=== PATIENT | female | born 1945 | race Caucasian/White ===

== ENCOUNTER 2023-05-10 11:24 | Inpatient (IN) | payer MEDICARE, MEDICAID ==
[2023-05-10] MEDS ORDERED: Dexamethasone 4 MG/ML 5 ML MDV ONE (11:39)
[2023-05-10] MEDS ORDERED: Albuterol/Ipratropium 3.0-0.5 MG/3 ML Neb Soln ONE (11:40)
[2023-05-10] MEDS ORDERED: Dexamethasone 4 MG/ML 5 ML MDV IVPUSH ONE (11:43)
[2023-05-10] MEDS ORDERED: Albuterol/Ipratropium 3.0-0.5 MG/3 ML Neb Soln NEB ONE (11:44)
[2023-05-10] MEDS ORDERED: Diltiazem 25 MG/5 ML SDV IVPUSH ONE (12:07)
[2023-05-10 12:08] LABS: HEMATOCRIT 50.9 % (34.2-48.2); HEMOGLOBIN 17.1 g/dL (11.4-15.5); MEAN CORPUSCULAR HEMOGLOBIN 31.5 pg (23.9-33.9); MEAN CORPUSCULAR HGB CONC 33.5 g/dL (31.9-34.8); MEAN CORPUSCULAR VOLUME 93.9 fL (76.7-100.5); MEAN PLATELET VOLUME 8.7 fL (7.1-12.4); PLATELET COUNT,PLT 240 x10(3)uL (151-488); RED BLOOD CELL COUNT 5.42 x10(6)uL (3.60-5.20); RED CELL DISTRIBUTION WIDTH 13.3 % (12.3-16.5); WHITE BLOOD CELL COUNT,WBC 20.4 x10-3/uL (3.0-10.3)
[2023-05-10 12:12] LABS: A/G RATIO 0.6; ALANINE AMINOTRANSFERASE,ALT 55 U/L (12-36); ALBUMIN 3.3 g/dL (3.2-4.6); ALKALINE PHOSPHATASE 75 IU/L (56-112); ASPARTATE AMNIOTRANSFERASE,AST 50 IU/L (5-25); BILIRUBIN TOTAL 2.3 mg/dL (0.1-1.3); BLOOD UREA NITROGEN,BUN 21 mg/dL (7-18); CALCIUM 9.4 mg/dL (8.6-10.2); CARBON DIOXIDE,CO2 27 mmol/L (21-32); CHLORIDE,CL 100 mmol/L (100-110); CREATININE 1.5 mg/dL (0.55-1.02); ESTIMATED GFR 35 mL/min (>60); GLUCOSE RANDOM 208 mg/dL (80-116); POTASSIUM,K 2.9 mmol/L (3.5-5.3); PROTEIN TOTAL,TP 8.6 g/dL (6.0-8.0); SODIUM,NA 142 mmol/L (135-145)
[2023-05-10] MEDS ORDERED: Sodium Chloride 0.9% 1,000 ML IV SCH ×3 (12:15→17:15)
[2023-05-10 12:17] LABS: INR 1.18 (1.00-1.24); PROTHROMBIN TIME 12.1 sec (9.0-11.1); PTT,PARTIAL THROMBOPLSTIN TIME 31.6 SECONDS (24.4-33.2)
[2023-05-10 12:28] LABS: BASE EXCESS VENOUS,POC -2 mmol/L (-2 - 3+); PCO2 VENOUS,POC 37 mmHg (41-51); PH VENOUS,POC 7.39 pH Units (7.32-7.43)
[2023-05-10 12:36] LABS: LACTIC ACID 5.8 mmol/L (0.4-2.0)
[2023-05-10 12:50] LABS: BAND PERCENT MAN 7 % (0-6); LYMPHOCYTES PERCENT MAN 12 % (13-37); MONOCYTES PERCENT MAN 4 % (4-12); SEG NEUTROPHILS PERCENT MAN 77 % (46-82)
[2023-05-10] MEDS ORDERED: Scopolamine 1.5 MG Transdermal Patch TOP ONE (13:49)
[2023-05-10] MEDS ORDERED: cefTRIAXone 2 GM Vial IVPUSH ONE (14:07)
[2023-05-10] MEDS ORDERED: VANCOmycin 1 GM/200 ML 1 GM in Premix Bag 1 BAG IV ONE (14:07)
[2023-05-10] MEDS: Sodium Chloride 0.9% 1,000 ML IV SCH ×2 (14:20→15:46)
[2023-05-10] MEDS ORDERED: Sodium Chloride 0.9% 1,000 ML IV ONE (14:25)
[2023-05-10] MEDS ORDERED: REMDESIVIR 200 MG in Sodium Chloride 0.9% 250 ML IV ONE (14:59)
[2023-05-10] MEDS ORDERED: Ondansetron 4 MG/2 ML SDV IV PRN (16:15)
[2023-05-10] MEDS ORDERED: Iopamidol 755 Mg/ML 100 ML Bottle IV SCH (16:30)
[2023-05-10] MEDS ORDERED: VANCOmycin 1 GM/200 ML 1 GM in Premix Bag 1 BAG IV SCH (16:30)
[2023-05-10] MEDS: Albuterol 0.083% 2.5 MG/3 ML Neb Soln NEB PRN (16:38)
[2023-05-10] MEDS: Enoxaparin 40 MG/0.4 ML Syringe SUBCUT SCH (16:41)
[2023-05-10] MEDS ORDERED: Potassium Chloride 20 MEQ in Premix Bag 1 BAG IV ONE (17:24)
[2023-05-10] MEDS ORDERED: NS + KCl 20mEq/L 1,000 ML IV SCH (17:30)
[2023-05-10] MEDS ORDERED: Haloperidol Lactate 5 MG/ML SDV IV ONE (17:39)
[2023-05-10 18:12] LABS: LACTIC ACID 3.4 mmol/L (0.4-2.0)
[2023-05-10] MEDS: Acetaminophen 325 MG Tab PO PRN (19:53)
[2023-05-10] MEDS: Albuterol/Ipratropium 3.0-0.5 MG/3 ML Neb Soln NEB SCH (20:21)
[2023-05-10] MEDS: Morphine 2 MG/ML SYRINGE IVPUSH PRN ×2 (21:04→21:16)
[2023-05-10] MEDS: Sodium Chloride 0.9% 10 ML Syringe FLUSH PRN (21:19)
[2023-05-11] MEDS: Albuterol 0.083% 2.5 MG/3 ML Neb Soln NEB PRN
[2023-05-11] MEDS: Morphine 2 MG/ML SYRINGE IVPUSH PRN (04:24)
[2023-05-11] MEDS: Sodium Chloride 0.9% 10 ML Syringe FLUSH PRN ×2 (04:26→09:15)
[2023-05-11] MEDS: Albuterol/Ipratropium 3.0-0.5 MG/3 ML Neb Soln NEB SCH ×4 (06:20→20:28)
[2023-05-11 06:44] LABS: HEMATOCRIT 42.4 % (34.2-48.2); HEMOGLOBIN 14.6 g/dL (11.4-15.5); MEAN CORPUSCULAR HGB CONC 34.5 g/dL (31.9-34.8); MEAN CORPUSCULAR VOLUME 92.8 fL (76.7-100.5); MEAN PLATELET VOLUME 8.1 fL (7.1-12.4); PLATELET COUNT,PLT 140 x10(3)uL (151-488); RED BLOOD CELL COUNT 4.57 x10(6)uL (3.60-5.20); RED CELL DISTRIBUTION WIDTH 13.6 % (12.3-16.5); WHITE BLOOD CELL COUNT,WBC 10.8 x10-3/uL (3.0-10.3)
[2023-05-11 06:51] LABS: BASE EXCESS ARTERIAL,POC -2 mmol/L (-2 - 3+); HCO3 ARTERIAL,POC 23 mmol/L (21-28); O2 SATURATION ARTERIAL,POC 94.6 % (94-98); PO2 ARTERIAL,POC 73 mmHg (83-108)
[2023-05-11 06:58] LABS: A/G RATIO 0.6; ALANINE AMINOTRANSFERASE,ALT 40 U/L (12-36); ALBUMIN 2.4 g/dL (3.2-4.6); ALKALINE PHOSPHATASE 44 IU/L (56-112); ASPARTATE AMNIOTRANSFERASE,AST 51 IU/L (5-25); BILIRUBIN TOTAL 0.7 mg/dL (0.1-1.3); BLOOD UREA NITROGEN,BUN 23 mg/dL (7-18); BUN/CREATININE RATIO 16.4 (9-20); CALCIUM 7.9 mg/dL (8.6-10.2); CARBON DIOXIDE,CO2 25 mmol/L (21-32); CHLORIDE,CL 109 mmol/L (100-110); CREATININE 1.4 mg/dL (0.55-1.02); EST CRCL DRUG DOSING (CG) 26.19 mL/min; ESTIMATED GFR 39 mL/min (>60); GLUCOSE RANDOM 170 mg/dL (80-116); PROTEIN TOTAL,TP 6.6 g/dL (6.0-8.0); SODIUM,NA 145 mmol/L (135-145)
[2023-05-11 07:12] LABS: BAND PERCENT MAN 10 % (0-6); LYMPHOCYTES PERCENT MAN 13 % (13-37); MONOCYTES PERCENT MAN 7 % (4-12); SEG NEUTROPHILS PERCENT MAN 70 % (46-82)
[2023-05-11] MEDS ORDERED: Sodium Chloride 0.9% 500 ML IV ONE (08:14)
[2023-05-11] MEDS: Dexamethasone 4 MG/ML 5 ML MDV IVPUSH SCH (09:14)
[2023-05-11] MEDS: Sodium Chloride 0.9% 1,000 ML IV SCH ×2 (10:59→21:50)
[2023-05-11] MEDS ORDERED: Gabapentin 100 MG Cap PO PRN (12:31)
[2023-05-11] MEDS: Gabapentin 100 MG Cap PO SCH ×2 (12:59→20:28)
[2023-05-11] MEDS: hydrOXYzine HCl 25 MG Tab PO SCH (12:59)
[2023-05-11] MEDS: REMDESIVIR 100 MG in Sodium Chloride 0.9% 100 ML IV SCH (14:02)
[2023-05-11] MEDS: cefTRIAXone 1 GM Vial IVPUSH SCH (14:02)
[2023-05-11] MEDS: Sennosides/Docusate Sodium 50-8.6 MG Tab PO PRN (15:24)
[2023-05-11] MEDS: VANCOmycin 1 GM/200 ML 1 GM in Premix Bag 1 BAG IV SCH (15:34)
[2023-05-11] MEDS: Enoxaparin 40 MG/0.4 ML Syringe SUBCUT SCH (17:25)
[2023-05-11] MEDS: Donepezil 5 MG Tab PO SCH (20:28)
[2023-05-11] MEDS ORDERED: QUEtiapine 25 MG Tab PO ONE (21:30)
[2023-05-11] MEDS: Acetaminophen 325 MG Tab PO PRN (23:25)
[2023-05-12 06:26] LABS: HEMATOCRIT 38.7 % (34.2-48.2); HEMOGLOBIN 13.1 g/dL (11.4-15.5); MEAN CORPUSCULAR HEMOGLOBIN 31.4 pg (23.9-33.9); MEAN CORPUSCULAR HGB CONC 33.9 g/dL (31.9-34.8); MEAN CORPUSCULAR VOLUME 92.7 fL (76.7-100.5); MEAN PLATELET VOLUME 8.6 fL (7.1-12.4); PLATELET COUNT,PLT 156 x10(3)uL (151-488); RED BLOOD CELL COUNT 4.17 x10(6)uL (3.60-5.20); RED CELL DISTRIBUTION WIDTH 13.5 % (12.3-16.5); WHITE BLOOD CELL COUNT,WBC 9.4 x10-3/uL (3.0-10.3)
[2023-05-12] MEDS: Albuterol/Ipratropium 3.0-0.5 MG/3 ML Neb Soln NEB SCH ×4 (06:30→21:45)
[2023-05-12 06:36] LABS: A/G RATIO 0.6; ALANINE AMINOTRANSFERASE,ALT 45 U/L (12-36); ALBUMIN 2.3 g/dL (3.2-4.6); ALKALINE PHOSPHATASE 41 IU/L (56-112); ASPARTATE AMNIOTRANSFERASE,AST 66 IU/L (5-25); BILIRUBIN TOTAL 0.5 mg/dL (0.1-1.3); BLOOD UREA NITROGEN,BUN 29 mg/dL (7-18); BUN/CREATININE RATIO 26.4 (9-20); CARBON DIOXIDE,CO2 24 mmol/L (21-32); CHLORIDE,CL 112 mmol/L (100-110); CREATININE 1.1 mg/dL (0.55-1.02); EST CRCL DRUG DOSING (CG) 33.34 mL/min; ESTIMATED GFR 51 mL/min (>60); GLUCOSE RANDOM 150 mg/dL (80-116); POTASSIUM,K 3.6 mmol/L (3.5-5.3); PROTEIN TOTAL,TP 6.3 g/dL (6.0-8.0); SODIUM,NA 147 mmol/L (135-145)
[2023-05-12 06:43] LABS: BAND PERCENT MAN 1 % (0-6); LYMPHOCYTES PERCENT MAN 7 % (13-37); MONOCYTES PERCENT MAN 7 % (4-12); SEG NEUTROPHILS PERCENT MAN 85 % (46-82)
[2023-05-12] MEDS: Albuterol 0.083% 2.5 MG/3 ML Neb Soln NEB PRN ×2 (08:05→23:00)
[2023-05-12] MEDS: Dexamethasone 4 MG/ML 5 ML MDV IVPUSH SCH (08:21)
[2023-05-12] MEDS: Gabapentin 100 MG Cap PO SCH ×3 (08:26→20:57)
[2023-05-12] MEDS: hydrOXYzine HCl 25 MG Tab PO SCH (08:26)
[2023-05-12] MEDS: Sodium Chloride 0.9% 10 ML Syringe FLUSH PRN ×3 (08:28→14:55)
[2023-05-12] MEDS ORDERED: QUEtiapine 25 MG Tab PO PRN (08:36)
[2023-05-12] MEDS: Sennosides/Docusate Sodium 50-8.6 MG Tab PO PRN (08:52)
[2023-05-12] MEDS ORDERED: LORazepam 2 MG/ML SDV IVPUSH PRN (09:14)
[2023-05-12] MEDS: REMDESIVIR 100 MG in Sodium Chloride 0.9% 100 ML IV SCH (14:14)
[2023-05-12] MEDS: cefTRIAXone 1 GM Vial IVPUSH SCH (14:15)
[2023-05-12] MEDS: VANCOmycin 1 GM/200 ML 1 GM in Premix Bag 1 BAG IV SCH (15:48)
[2023-05-12] MEDS: Enoxaparin 40 MG/0.4 ML Syringe SUBCUT SCH (15:54)
[2023-05-12] MEDS ORDERED: OLANZapine 10 MG Vial IM ONE (18:50)
[2023-05-12] MEDS ORDERED: LORazepam 2 MG/ML SDV IM ONE (18:52)
[2023-05-12] MEDS: Donepezil 5 MG Tab PO SCH (20:57)
[2023-05-12] MEDS: Acetaminophen 325 MG Tab PO PRN (22:55)
[2023-05-13] MEDS: Albuterol/Ipratropium 3.0-0.5 MG/3 ML Neb Soln NEB SCH ×4 (06:20→20:39)
[2023-05-13 07:19] LABS: HEMATOCRIT 39.6 % (34.2-48.2); HEMOGLOBIN 13.4 g/dL (11.4-15.5); MEAN CORPUSCULAR HEMOGLOBIN 31.5 pg (23.9-33.9); MEAN CORPUSCULAR HGB CONC 33.8 g/dL (31.9-34.8); MEAN PLATELET VOLUME 8.6 fL (7.1-12.4); PLATELET COUNT,PLT 175 x10(3)uL (151-488); RED BLOOD CELL COUNT 4.26 x10(6)uL (3.60-5.20); RED CELL DISTRIBUTION WIDTH 13.7 % (12.3-16.5); WHITE BLOOD CELL COUNT,WBC 6.8 x10-3/uL (3.0-10.3)
[2023-05-13 07:31] LABS: A/G RATIO 0.6; ALANINE AMINOTRANSFERASE,ALT 46 U/L (12-36); ALBUMIN 2.3 g/dL (3.2-4.6); ALKALINE PHOSPHATASE 43 IU/L (56-112); ASPARTATE AMNIOTRANSFERASE,AST 39 IU/L (5-25); BILIRUBIN TOTAL 0.4 mg/dL (0.1-1.3); BLOOD UREA NITROGEN,BUN 29 mg/dL (7-18); BUN/CREATININE RATIO 24.2 (9-20); CALCIUM 8.1 mg/dL (8.6-10.2); CARBON DIOXIDE,CO2 24 mmol/L (21-32); CHLORIDE,CL 113 mmol/L (100-110); CREATININE 1.2 mg/dL (0.55-1.02); EST CRCL DRUG DOSING (CG) 30.56 mL/min; ESTIMATED GFR 46 mL/min (>60); GLUCOSE RANDOM 249 mg/dL (80-116); POTASSIUM,K 3.6 mmol/L (3.5-5.3); PROTEIN TOTAL,TP 6.2 g/dL (6.0-8.0); SODIUM,NA 147 mmol/L (135-145)
[2023-05-13 07:47] LABS: LYMPHOCYTES PERCENT MAN 9 % (13-37); MONOCYTES PERCENT MAN 3 % (4-12); SEG NEUTROPHILS PERCENT MAN 88 % (46-82)
[2023-05-13] MEDS: hydrOXYzine HCl 25 MG Tab PO SCH (09:57)
[2023-05-13] MEDS: Gabapentin 100 MG Cap PO SCH ×3 (09:57→20:39)
[2023-05-13] MEDS: Dexamethasone 4 MG/ML 5 ML MDV IVPUSH SCH (09:58)
[2023-05-13] MEDS: REMDESIVIR 100 MG in Sodium Chloride 0.9% 100 ML IV SCH (14:06)
[2023-05-13] MEDS: cefTRIAXone 1 GM Vial IVPUSH SCH (15:15)
[2023-05-13] MEDS: Sodium Chloride 0.9% 10 ML Syringe FLUSH PRN (15:23)
[2023-05-13] MEDS: Enoxaparin 40 MG/0.4 ML Syringe SUBCUT SCH (16:09)
[2023-05-13] MEDS: VANCOmycin 1 GM/200 ML 1 GM in Premix Bag 1 BAG IV SCH (16:18)
[2023-05-13] MEDS: Donepezil 5 MG Tab PO SCH (20:39)
[2023-05-14] MEDS: Albuterol/Ipratropium 3.0-0.5 MG/3 ML Neb Soln NEB SCH ×4 (06:28→20:36)
[2023-05-14 06:44] LABS: HEMATOCRIT 41.9 % (34.2-48.2); HEMOGLOBIN 14.1 g/dL (11.4-15.5); MEAN CORPUSCULAR HEMOGLOBIN 31.6 pg (23.9-33.9); MEAN CORPUSCULAR HGB CONC 33.6 g/dL (31.9-34.8); MEAN PLATELET VOLUME 8.3 fL (7.1-12.4); PLATELET COUNT,PLT 192 x10(3)uL (151-488); RED BLOOD CELL COUNT 4.46 x10(6)uL (3.60-5.20); RED CELL DISTRIBUTION WIDTH 13.6 % (12.3-16.5); WHITE BLOOD CELL COUNT,WBC 8.3 x10-3/uL (3.0-10.3)
[2023-05-14 06:53] LABS: A/G RATIO 0.6; ALANINE AMINOTRANSFERASE,ALT 59 U/L (12-36); ALBUMIN 2.3 g/dL (3.2-4.6); ALKALINE PHOSPHATASE 47 IU/L (56-112); ASPARTATE AMNIOTRANSFERASE,AST 39 IU/L (5-25); BILIRUBIN TOTAL 0.3 mg/dL (0.1-1.3); BLOOD UREA NITROGEN,BUN 32 mg/dL (7-18); BUN/CREATININE RATIO 26.7 (9-20); CARBON DIOXIDE,CO2 25 mmol/L (21-32); CHLORIDE,CL 110 mmol/L (100-110); CREATININE 1.2 mg/dL (0.55-1.02); EST CRCL DRUG DOSING (CG) 30.56 mL/min; ESTIMATED GFR 46 mL/min (>60); GLUCOSE RANDOM 326 mg/dL (80-116); POTASSIUM,K 4.2 mmol/L (3.5-5.3); PROTEIN TOTAL,TP 6.3 g/dL (6.0-8.0); SODIUM,NA 146 mmol/L (135-145)
[2023-05-14 07:22] LABS: BAND PERCENT MAN 1 % (0-6); LYMPHOCYTES PERCENT MAN 7 % (13-37); MONOCYTES PERCENT MAN 4 % (4-12); POLYCHROMASIA MANY; SEG NEUTROPHILS PERCENT MAN 88 % (46-82)
[2023-05-14] MEDS: hydrOXYzine HCl 25 MG Tab PO SCH (08:54)
[2023-05-14] MEDS: Dexamethasone 4 MG/ML 5 ML MDV IVPUSH SCH (08:54)
[2023-05-14] MEDS: Gabapentin 100 MG Cap PO SCH ×3 (08:54→20:36)
[2023-05-14] MEDS: Sodium Chloride 0.9% 10 ML Syringe FLUSH PRN ×3 (08:55→16:46)
[2023-05-14] MEDS: REMDESIVIR 100 MG in Sodium Chloride 0.9% 100 ML IV SCH (14:12)
[2023-05-14] MEDS: cefTRIAXone 1 GM Vial IVPUSH SCH (14:14)
[2023-05-14] MEDS: Enoxaparin 40 MG/0.4 ML Syringe SUBCUT SCH (16:46)
[2023-05-14] MEDS: VANCOmycin 1 GM/200 ML 1 GM in Premix Bag 1 BAG IV SCH (16:46)
[2023-05-14] MEDS: Donepezil 5 MG Tab PO SCH (20:36)
[2023-05-15] MEDS: Albuterol/Ipratropium 3.0-0.5 MG/3 ML Neb Soln NEB SCH ×2 (06:23→12:57)
[2023-05-15 06:54] LABS: HEMATOCRIT 43.7 % (34.2-48.2); HEMOGLOBIN 14.8 g/dL (11.4-15.5); MEAN CORPUSCULAR HEMOGLOBIN 31.4 pg (23.9-33.9); MEAN CORPUSCULAR HGB CONC 33.8 g/dL (31.9-34.8); MEAN CORPUSCULAR VOLUME 92.9 fL (76.7-100.5); MEAN PLATELET VOLUME 8.4 fL (7.1-12.4); PLATELET COUNT,PLT 215 x10(3)uL (151-488); RED BLOOD CELL COUNT 4.71 x10(6)uL (3.60-5.20); RED CELL DISTRIBUTION WIDTH 13.5 % (12.3-16.5); WHITE BLOOD CELL COUNT,WBC 11.4 x10-3/uL (3.0-10.3)
[2023-05-15 07:15] LABS: A/G RATIO 0.6; ALANINE AMINOTRANSFERASE,ALT 65 U/L (12-36); ALBUMIN 2.3 g/dL (3.2-4.6); ALKALINE PHOSPHATASE 52 IU/L (56-112); ASPARTATE AMNIOTRANSFERASE,AST 38 IU/L (5-25); BILIRUBIN TOTAL 0.4 mg/dL (0.1-1.3); BLOOD UREA NITROGEN,BUN 31 mg/dL (7-18); BUN/CREATININE RATIO 25.8 (9-20); CALCIUM 8.3 mg/dL (8.6-10.2); CARBON DIOXIDE,CO2 26 mmol/L (21-32); CHLORIDE,CL 109 mmol/L (100-110); CREATININE 1.2 mg/dL (0.55-1.02); EST CRCL DRUG DOSING (CG) 30.56 mL/min; ESTIMATED GFR 46 mL/min (>60); GLUCOSE RANDOM 286 mg/dL (80-116); POTASSIUM,K 3.8 mmol/L (3.5-5.3); PROTEIN TOTAL,TP 6.3 g/dL (6.0-8.0); SODIUM,NA 144 mmol/L (135-145)
[2023-05-15 07:28] LABS: BAND PERCENT MAN 4 % (0-6); LYMPHOCYTES PERCENT MAN 8 % (13-37); MONOCYTES PERCENT MAN 4 % (4-12); SEG NEUTROPHILS PERCENT MAN 84 % (46-82)
[2023-05-15] MEDS: hydrOXYzine HCl 25 MG Tab PO SCH (08:24)
[2023-05-15] MEDS: Gabapentin 100 MG Cap PO SCH (08:31)
[2023-05-15] MEDS ORDERED: Doxycycline 100 MG Tab PO SCH (09:00)
[2023-05-15] MEDS ORDERED: Amoxicillin/Clavulanate K 875-125 MG Tab PO SCH (09:00)
[2023-05-15] MEDS: Dexamethasone 4 MG/ML 5 ML MDV IVPUSH SCH (11:53)
== END 2023-05-15 11:35 | DRG 871 ==
LOC: FB.ED 11:24 → FB.MS 16:15
PROVIDERS: ADMIT Emergency Medicine; ATTEND Family Medicine
PROC: 4A033R1 Measurement of Arterial Saturation, Peripheral, Percutaneous Approach (ICD-10-PCS; principal; 2023-05-10)
PROC: 3E0333Z Introduction of Anti-inflammatory into Peripheral Vein, Percutaneous Approach (ICD-10-PCS; 2023-05-10)
PROC: XW033E5 Introduction of Remdesivir Anti-infective into Peripheral Vein, Percutaneous Approach, New Technology Group 5 (ICD-10-PCS; 2023-05-10)
PROC: 3E03329 Introduction of Other Anti-infective into Peripheral Vein, Percutaneous Approach (ICD-10-PCS; 2023-05-10)
DX: A41.89 Other specified sepsis (principal); J15.9 Unspecified bacterial pneumonia; U07.1 COVID-19; J96.21 Acute and chronic respiratory failure with hypoxia; J44.1 Chronic obstructive pulmonary disease with (acute) exacerbation; J44.0 Chronic obstructive pulmonary disease with (acute) lower respiratory infection; G30.9 Alzheimer's disease, unspecified; F02.80 Dementia in other diseases classified elsewhere, unspecified severity, without behavioral disturbance, psychotic disturbance, mood disturbance, and anxiety; E87.20 Acidosis, unspecified; N17.9 Acute kidney failure, unspecified; F05 Delirium due to known physiological condition; F02.B18 Dementia in other diseases classified elsewhere, moderate, with other behavioral disturbance; E87.0 Hyperosmolality and hypernatremia; Z66 Do not resuscitate; R65.20 Severe sepsis without septic shock; E87.6 Hypokalemia; G30.1 Alzheimer's disease with late onset; E78.00 Pure hypercholesterolemia, unspecified; I10 Essential (primary) hypertension; M19.90 Unspecified osteoarthritis, unspecified site; F41.9 Anxiety disorder, unspecified; F32.A Depression, unspecified; Z90.710 Acquired absence of both cervix and uterus; Z79.899 Other long term (current) drug therapy; Z87.891 Personal history of nicotine dependence; Z98.49 Cataract extraction status, unspecified eye; Z98.1 Arthrodesis status; Z90.49 Acquired absence of other specified parts of digestive tract
CPT/HCPCS: 36410; 36415; 71045; 71275; 80053; 83605 ×2; 83880; 84484; 85025; 85379; 85610; 85730; 87040 ×2; 93005; 94660; 96361; 96365; 96366; 96368; 96375; 99285; A9270; J0696; J1100; J3370; J3490; J7030 ×3; J7050; 51702; 71260; 80202; 82803; 93010; 94640; 99223; 99233; 99238; J1630; J1650; J2060; J2270; J2405; J3480; J7040; J7620; Q9967

== ENCOUNTER 2025-04-27 07:15 | Emergency (ER) | payer MEDICARE, MEDICAID ==
[2025-04-27 08:16] LABS: MEAN PLATELET VOLUME 9.0 fL (7.1-12.4); PLATELET COUNT,PLT 216 x10(3)uL (151-488); RED BLOOD CELL COUNT 5.15 x10(6)uL (3.60-5.20); RED CELL DISTRIBUTION WIDTH 13.6 % (12.3-16.5); WHITE BLOOD CELL COUNT,WBC 19.0 x10-3/uL (3.0-10.3)
[2025-04-27 08:24] LABS: A/G RATIO 0.6; ALANINE AMINOTRANSFERASE,ALT 49 U/L (12-36); ASPARTATE AMNIOTRANSFERASE,AST 68 IU/L (5-25); BILIRUBIN TOTAL 1.8 mg/dL (0.1-1.3); BLOOD UREA NITROGEN,BUN 29 mg/dL (7-18); CARBON DIOXIDE,CO2 24 mmol/L (21-32); CHLORIDE,CL 100 mmol/L (100-110); ESTIMATED GFR 15 mL/min (>60); GLUCOSE RANDOM 268 mg/dL (80-116); POTASSIUM,K 4.0 mmol/L (3.5-5.3); PROTEIN TOTAL,TP 7.4 g/dL (6.0-8.0); SODIUM,NA 138 mmol/L (135-145)
[2025-04-27 08:25] LABS: CREATININE 3.1 mg/dL (0.55-1.02)
[2025-04-27 08:28] LABS: GLUCOSE,URINE NORMAL (NORMAL); OCCULT BLOOD,URINE LARGE (NEGATIVE)
[2025-04-27 08:29] LABS: APPEARANCE,URINE TURBID (CLEAR)
[2025-04-27 08:33] LABS: BAND PERCENT MAN 15 % (0-6); LYMPHOCYTES PERCENT MAN 5 % (13-37); MONOCYTES PERCENT MAN 2 % (4-12); SEG NEUTROPHILS PERCENT MAN 78 % (46-82)
[2025-04-27] MEDS: Norepinephrine Bit/D5W Premix 4 MG in Premix Bag 1 BAG IV SCH (09:38)
[2025-04-27 09:43] LABS: INFLUENZA A NAA NEGATIVE (NEGATIVE); INFLUENZA B NAA NEGATIVE (NEGATIVE); RESPIRATORY SYNCYTIAL VIR NAA NEGATIVE (NEGATIVE)
[2025-04-27 10:22] LABS: CORONAVIRUS COVID-19 NAA NEGATIVE (NEGATIVE)
[2025-04-27 10:32] LABS: BASE EXCESS VENOUS,POC -7 mmol/L (-2 - 3+); PCO2 VENOUS,POC 35 mmHg (41-51); PH VENOUS,POC 7.33 pH Units (7.32-7.43)
== END 2025-04-27 12:40 ==
LOC: FB.ED 07:15
DX: S00.31XA Abrasion of nose, initial encounter (principal); A41.9 Sepsis, unspecified organism; R65.21 Severe sepsis with septic shock; N17.9 Acute kidney failure, unspecified; N10 Acute pyelonephritis; G30.1 Alzheimer's disease with late onset; F02.B18 Dementia in other diseases classified elsewhere, moderate, with other behavioral disturbance; I10 Essential (primary) hypertension; E78.00 Pure hypercholesterolemia, unspecified; J44.9 Chronic obstructive pulmonary disease, unspecified; Z79.899 Other long term (current) drug therapy; Z90.49 Acquired absence of other specified parts of digestive tract; W01.198A Fall on same level from slipping, tripping and stumbling with subsequent striking against other object, initial encounter; Y93.89 Activity, other specified
CPT/HCPCS: 36415; 70450; 71045; 80053; 81001; 83605; 84484; 85025; 86140; 87040; 87077; 87086; 87088; 87186; 87637; 93005; 96361; 96365; 96366; 96375; 99285; J0692; J0696; J7030